=== PATIENT | female | born 1980 ===

== ENCOUNTER 2020-11-26 09:55 | Day surgery (SDC) | payer BC ==
[2020-11-26] MEDS ORDERED: LEVSOD25 PO (10:15)
[2020-11-26] MEDS ORDERED: FAMO20 PO (10:15)
== END 2020-11-26 12:20 | disposition home or self-care (01) ==
LOC: ATC 09:55
DX: U07.1 COVID-19 (principal); J45.909 Unspecified asthma, uncomplicated; E03.9 Hypothyroidism, unspecified; Z90.3 Acquired absence of stomach [part of]; Z88.8 Allergy status to other drugs, medicaments and biological substances; Z91.040 Latex allergy status; Z79.899 Other long term (current) drug therapy
CPT/HCPCS: 96365; Q0243